=== PATIENT | male | born 1995 | race Two or more races ===

== ENCOUNTER 2021-06-12 15:32 | Emergency (ER) | payer OTHER ==
[~2021-06-12] VITALS: Ht 177.8 cm; Wt 118.2 kg
[2021-06-12] MEDS ORDERED: BENZONATATE 100 MG CAPSULE PO ONE (18:00)
[2021-06-12 18:40] VITALS: BP 155/66
== END 2021-06-12 18:41 | disposition home or self-care (01) ==
LOC: EMS 15:40
DX: U07.1 COVID-19 (principal); R06.02 Shortness of breath; R05 Cough
CPT/HCPCS: 71045; 99283